=== PATIENT | male | born 1975 | race Caucasian/White ===

== ENCOUNTER 2019-02-18 17:54 | Emergency (ER) | payer BC ==
[~2019-02-18] VITALS: Ht 182.9 cm; Wt 106.6 kg
[~2019-02-18 17:54] MED LIST: NO REPORTABLE MEDS
[2019-02-18 18:00] VITALS: BP 136/79
[2019-02-18] MEDS ORDERED: LORAZEPAM 0.5 MG TABLET ONE (18:11)
--- NOTE | 2019-02-18 18:22 | NUR ---
Patient discharged to home in stable condition. Written and verbal after care instructions given. Patient verbalizes understanding of instruction. Instructed patient not to drive, per patient his brother is outside to pick him up.
[2019-02-18] MEDS ORDERED: LORAZEPAM 1 MG TABLET PO ONE (18:30)
== END 2019-02-18 18:23 | disposition home or self-care (01) ==
LOC: ER 17:57
DX: F41.9 Anxiety disorder, unspecified (principal); R06.00 Dyspnea, unspecified